=== PATIENT | male | born 1980 | race African-American/Black ===

== ENCOUNTER 2019-08-18 13:41 | Emergency (ER) | payer BC, SELFPAY ==
--- OUTSIDE RECORDS SUMMARY | 2019-08-18 14:24 | XMS REPORT | Clinical Summary ---
:[address] [facility] Address [address] [place] [address] Care Team Providers Name Role Phone Debbie Romero MD Primary Care Provider Allergies No Known Allergies Medications No known medications Active Problems Problem Noted Date Labral tear of shoulder, left, initial encounter 01/12 Overview: Added automatically from request for alex yasemin [id number] Impingement syndrome of left shoulder 01/12/2018 Overview: Added automatically from request for alex hazel [id number] Family History Medical History Relation Name Comments Cancer Maternal Grandmother Rhiannon Oconnor Relation Name Status Comments Maternal Grandmother Rhiannon Oconnor Social History Tobacco Use Types Packs/Day Years Used Date Never Smoker Smokeless Tobacco: Never Used Alcohol Use Drinks/Week oz/Week Comments No Sex Assigned at Date Recorded Not on file Job Start Date Occupation Industry Not on file Not on file Not on file Travel History Travel Start Travel End No recent travel history available. Last Filed Vital Signs Not on file Plan of Treatment Health Maintenance Due Date Last Done Comments INFLUENZA VACCINE 09/29/2019 Implants Implanted Type Area Human Services Worker Device Shelf Model / Identifier Expiration Serial / Date Lot Proximal [employer] Implant Sys Bicepsbutton No 2 Fiber loop - [id number] Surgical Left: [employer] 09/27/2022 AR [id number] / Implanted: Qty: 1 on 01/31/2018 by Van Blank MD at [facility] Implants; Shoulder / Expanders; [id number] Extenders; Surgical Wires Results Not on fileafter 08/17/2018 Advance Directives For more information, please contact: [phone] Type Date Recorded Patient [place] Bottom Maker Explanati on Advance Directives, Living Will and Medical Power of Vat Skimmer
[2019-08-18 14:26] LABS: Absolute Lymphocytes (CBC) 2.3 K/uL (0.7-4.9)
--- NOTE | 2019-08-18 14:27 | RAD REPORT ---
EXAM DESCRIPTION: RAD - Chest Single View - 08/18/2019 2:18 pm CLINICAL HISTORY: CHEST PAIN COMPARISON: Portable June 2016 TECHNIQUE: AP portable chest image was obtained 08/18/2019 2:18 pm . FINDINGS: Lungs are clear. Heart and vasculature are normal. No measurable pleural effusion and no p neumothorax. No acute bony abnormality seen. No acute aortic findings suspected. IMPRESSION: No acute cardiopulmonary process. No significant interval change.
[2019-08-18 14:31] LABS: Basophils % 0.5 % (0-1.3); Hematocrit 44.7 % (39.6-49.0); Lymphocytes % 43.4 % (15.3-44.8); MPV 10.2 fL (7.6-11.3); RBC Red Blood Cell Count 4.79 M/uL (4.33-5.43)
[2019-08-18 14:40] LABS: ALT/SGPT 31 U/L (12-78); AST/SGOT 22 U/L (15-37); Albumin 2.7 g/dL (3.4-5.0); Alkaline Phosphatase 100 U/L (45-117); BUN Blood Urea Nitrogen 9 mg/dL (7-18); Bicarbonate 29 mmol/L (21-32); Bilirubin Direct 0.1 mg/dL (0-0.2); Bilirubin Total 0.6 mg/dL (0.2-1.0); Glucose Level 91 mg/dL (74-106); Magnesium 2.2 mg/dL (1.8-2.4); NT PRO-BNP 20 pg/mL (<125); Potassium 4.1 mmol/L (3.5-5.1); Protein, Total 6.9 g/dL (6.4-8.2); Sodium Level 141 mmol/L (136-145); Troponin (Emerg Dept Use Only) < 0.02 ng/mL (0.0-0.045)
[2019-08-18 15:10] LABS: Blood Morphology Comment NOT SEEN (NOT SEEN); Platelet Estimate ADEQ
[2019-08-18] MEDS ORDERED: NA CHLORIDE 0.9% 500 ML ONE (15:19)
--- NOTE | 2019-08-18 15:44 | ER ---
Nurse's Notes [facility] Name: Peña Oconnor Jr Age: 39 yrs Sex: Male : 1980 Arrival Date: 08/18/2019 Time: 13:51 Bed 13 Private MD: Diagnosis: Chest pain, unspecified Presentation: 08/17 13:54 Chief complaint: Patient states: Chest pain since April, getting worse. States he ll1 started a new job and he thinks he over does it. Coronavirus screen: Proceed with normal triage. Patient denies a cough. Patient denies shortness of breath or difficulty breathing. Patient denies measured and/or subjective temperature greater than 100.4F prior to today's visit. Patient denies travel on a cruise ship or to a country [facility] currently lists as an affected area. Patient denies contact with known and/or suspected case of COVID-19. Ebola Screen: Patient denies travel to an Ebola-affected area in the 21 days before illness onset. Initial Sepsis Screen: Does the patient meet any 2 criteria? No. Patient's initial sepsis screen is negative. Risk Assessment: Do you want to hurt yourself or someone else? Patient reports no desire to harm self or others. Onset of symptoms was April 30, 2019. 13:54 Method Of Arrival: Ambulatory ll1 13:54 Acuity: SILVA 3 ll1 14:00 Initial Sepsis Screen: Does the patient have a suspected source of infection? No. vc Patient's initial sepsis screen is negative. Historical: - Allergies: 13:56 No Known Allergies; ll1 - PMHx: 13:56 Asthma; High Cholesterol; ll1 - PSHx: 13:56 None; ll1 - Immunization history:: Flu vaccine is not up to date. - Social history:: Smoking status: Patient denies any tobacco usage or history of. Patient uses alcohol, but reports only rare drinking. only on a social basis. Patient/guardian denies using street drugs, tobacco products. Screenin:02 Abuse screen: Denies threats or abuse. Nutritional screening: No deficits noted. ll1 Tuberculosis screening: No symptoms or risk factors identified. Fall Risk None identified. Total Trin[place] Fall Scale indicates No Risk (0-24 pts). Assessment: 13:59 General: Appears in no apparent distress. Behavior is calm, cooperative, appropriate ll1 for age. Pain: Complains of pain in chest Pain does not radiate. Quality of pain is described as sharp, Pain began 3 months intermittently. Cardiovascular: Reports chest pain, numbness and fingers and toes at times. Heart tones S1 S2 Capillary refill < 3 seconds Clubbing of nail beds is absent JVD is absent Patient's skin is warm and dry. Pulses are palpable in right radial artery and left radial artery Chest pain is described as vague, quality is sharp, is located in anterior began random, worse at night. Respiratory: No deficits noted. Denies cough. GI: No deficits noted. 14:59 Reassessment: Patient appears in no apparent distress at this time. Patient and/or vc family updated on plan of care and expected duration. Pain level reassessed. Patient is alert, oriented x 3, equal unlabored respirations, skin warm/dry/pink. Pain: Complains of pain in chest Pain currently is 2 out of 10 on a pain scale. Neuro: Level of Consciousness is awake, alert, obeys commands, Oriented to person, place, time, situation, Appropriate for age. 16:00 Reassessment: Patient appears in no apparent distress at this time. Patient and/or ss family updated on plan of care and expected duration. Pain level reassessed. Patient is alert, oriented x 3, equal unlabored respirations, skin warm/dry/pink. Vital Signs: 13:54 BP 103 / 67; Pulse 58; Resp 16; Temp 97.5; Pulse Ox 99% ; Pain 3/10; ll1 14:58 BP 125 / 74; Pulse 57; Resp 14; Pulse Ox 100% on R/A; vc 16:00 BP 131 / 74; Pulse 57; Resp 16; Pulse Ox 100% on R/A; ss ED Course: 13:51 Patient arrived in ED. fj1 13:56 Triage completed. ll1 13:57 Arm band placed on Patient placed in an exam room, on a stretcher. ll1 13:59 Jacque Alfaro RN is Primary Nurse. ll1 14:03 Derick Kelly MD is Attending Physician. kdr 14:10 Inserted saline lock: 20 gauge in right antecubital area, using aseptic technique. vc Blood collected. Patient maintains SpO2 saturation greater than 95% on room air. 14:18 XRAY Chest (1 view) In Process Unspecified. EDMS 14:33 Patient has correct armband on for positive identification. Placed in gown. Bed in low vc position. Side rails up X 1. panel monitor on. Pulse ox on. NIBP on. 16:16 No provider procedures requiring assistance completed. IV discontinued, intact, ss bleeding controlled, No redness/swelling at site. Pressure dressing applied. Administered Medications: 15:10 Drug: NS 0.9% 500 ml Route: IV; Rate: bolus; Site: right antecubital; vc Outcome: 15:43 Discharge ordered by . kdr 16:16 Discharged to home ambulatory. ss 16:16 Condition: good 16:16 Discharge instructions given to patient, Instructed on discharge instructions, follow up and referral plans. medication usage, Demonstrated understanding of instructions, follow-up care, medications, Prescriptions given X 1. 16:16 Patient left the ED. ss Signatures: Dispatcher [employer] [facility] Derick Kelly MD MD kdr Smirch, Shelby, RN RN ss Arlet Anderson RN RN Alfa Trujillo fj1 Jacque Alfaro RN RN ll1
--- NOTE | 2019-08-18 15:44 | EDPHYS ---
Physician Documentation [facility] Name: Peña Oconnor Jr Age: 39 yrs Sex: Male : 1980 Arrival Date: 08/18/2019 Time: 13:51 Bed 13 Private MD: ED Physician Derick Kelly HPI: 08/17 17:10 This 39 yrs old Black Male presents to ER via Ambulatory with complaints of Chest Pain. kdr 17:10 The patient or guardian reports chest pain that is located primarily in the substernal kdr area, anterior chest wall, bilaterally. Onset: suddenly, 3 month(s) ago. The pain does not radiate. Associated signs and symptoms: Pertinent positives: nausea, paresthesia - fingers and toes. The chest pain is described as aching, a pressure, sharp. Duration: The patient or guardian reports multiple episodes, that are intermittent, that wax and wane. Modifying factors: The symptoms are alleviated by rest, the symptoms are aggravated by activity, exertion, movement, walking. Severity of pain: At its worst the pain was mild in the emergency department the pain has resolved. The patient has experienced similar episodes in the past, multiple times, but today's symptoms are worse, lasting longer. Historical: - Allergies: 13:56 No Known Allergies; ll1 - PMHx: 13:56 Asthma; High Cholesterol; ll1 - PSHx: 13:56 None; ll1 - Immunization history:: Flu vaccine is not up to date. - Social history:: Smoking status: Patient denies any tobacco usage or history of. Patient uses alcohol, but reports only rare drinking. only on a social basis. Patient/guardian denies using street drugs, tobacco products. ROS: 17:10 Constitutional: Negative for fever, chills, and weight loss, Eyes: Negative for injury, kdr pain, redness, and discharge, ENT: Negative for injury, pain, and discharge, Neck: Negative for injury, pain, and swelling, Respiratory: Negative for shortness of breath, cough, wheezing, and pleuritic chest pain, Abdomen/GI: Negative for abdominal pain, nausea, vomiting, diarrhea, and constipation, Back: Negative for injury and pain, : Negative for injury, bleeding, discharge, and swelling, MS/Extremity: Negative for injury and deformity, Skin: Negative for injury, rash, and discoloration, Psych: Negative for depression, anxiety, suicide ideation, homicidal ideation, and hallucinations, Allergy/Immunology: Negative for hives, rash, and allergies, Endocrine: Negative for neck swelling, polydipsia, polyuria, polyphagia, and marked weight changes, Hematologic/Lymphatic: Negative for swollen nodes, abnormal bleeding, and unusual bruising. 17:10 Cardiovascular: Positive for chest pain, palpitations, Negative for edema, orthopnea, paroxysmal nocturnal dyspnea. 17:10 Neuro: Positive for tingling, of the , Finger tips and toes. Exam: 17:17 Constitutional: This is a well developed, well nourished patient who is awake, alert, kdr and in no acute distress. Head/Face: Normocephalic, atraumatic. Eyes: Pupils equal round and reactive to light, extra-ocular motions intact. Lids and lashes normal. Conjunctiva and sclera are non-icteric and not injected. Cornea within normal limits. Periorbital areas with no swelling, redness, or edema. Neck: Trachea midline, no thyromegaly or masses palpated, and no cervical lymphadenopathy. Supple, full range of motion without nuchal rigidity, or vertebral point tenderness. No Meningismus. Chest/axilla: Normal chest wall appearance and motion. Nontender with no deformity. No lesions are appreciated. Cardiovascular: Regular rate and rhythm with a normal S1 and S2. No gallops, murmurs, or rubs. Normal PMI, no JVD. No pulse deficits. Respiratory: Lungs have equal breath sounds bilaterally, clear to auscultation and percussion. No rales, rhonchi or wheezes noted. No increased work of breathing, no retractions or nasal flaring. Abdomen/GI: Soft, non-tender, with normal bowel sounds. No distension or tympany. No guarding or rebound. No evidence of tenderness throughout. Back: No spinal tenderness. No costovertebral tenderness. Full range of motion. Skin: Warm, dry with normal turgor. Normal color with no rashes, no lesions, and no evidence of cellulitis. MS/ Extremity: Pulses equal, no cyanosis. Neurovascular intact. Full, normal range of motion. Neuro: Awake and alert, GCS 15, oriented to person, place, time, and situation. Cranial nerves II-XII grossly intact. Motor strength 5/5 in all extremities. Sensory grossly intact. Cerebellar exam normal. Normal gait. Psych: Awake, alert, with orientation to person, place and time. Behavior, mood, and affect are within normal limits. 17:20 ECG was reviewed by the Attending Physician. kdr Vital Signs: 13:54 BP 103 / 67; Pulse 58; Resp 16; Temp 97.5; Pulse Ox 99% ; Pain 3/10; ll1 14:58 BP 125 / 74; Pulse 57; Resp 14; Pulse Ox 100% on R/A; vc 16:00 BP 131 / 74; Pulse 57; Resp 16; Pulse Ox 100% on R/A; ss MDM: 15:43 Patient medically screened. kdr 17:17 Differential diagnosis: acute myocardial infarction, acute pericarditis, anxiety, kdr coronary artery disease chest wall pain. Data reviewed: vital signs, nurses notes. Counseling: I had a detailed discussion with the patient and/or guardian regarding: the historical points, exam findings, and any diagnostic results supporting the discharge/admit diagnosis, lab results, radiology results, the need for outpatient follow up. 08/17 14:04 Order name: Basic Metabolic Panel; Complete Time: 14: [facility] 08/17 14:04 Order name: CBC with Diff; Complete Time: 15:42 [facility] 08/17 14:04 Order name: LFT's; Complete Time: 14: [facility] 08/17 14:04 Order name: Magnesium; Complete Time: 14: [facility] 08/17 14:04 Order name: NT PRO-BNP; Complete Time: 14:59 [facility] 08/17 14:04 Order name: Troponin (emerg Dept Use Only); Complete Time: 14:59 [facility] 08/17 14:04 Order name: XRAY Chest (1 view); Complete Time: 14:59 [facility] 08/17 14:04 Order name: EKG; Complete Time: 14:05 [facility] 08/17 14:04 Order name: Cardiac monitoring; Complete Time: 14: [facility] 08/17 14:04 Order name: EKG - Nurse/Tech; Complete Time: 14: [facility] 08/17 14:04 Order name: IV Saline Lock; Complete Time: 14: [facility] 08/17 14:04 Order name: Labs collected and sent; Complete Time: 14: [facility] 08/17 14:33 Order name: Manual Differential; Complete Time: 15:42 EDMS 08/17 14:04 Order name: O2 Per Protocol; Complete Time: 14:32 kdr 08/17 14:04 Order name: O2 Sat Monitoring; Complete Time: 14:32 [facility] EC:20 Rate is 50 beats/min. Rhythm is regular, Sinus bradycardia with No ectopy. QRS [place] is kdr Normal. CT interval is normal. QRS interval is normal. QT interval is normal. No Q waves. Clinical impression: NSR w/ Non-specific ST/T Changes and Sinus bradycardia. Administered Medications: 15:10 Drug: NS 0.9% 500 ml Route: IV; Rate: bolus; Site: right antecubital; Disposition: 08/18/19 15:43 Discharged to Home. Impression: Chest pain, unspecified. - Condition is Stable. - Discharge Instructions: Nonspecific Chest Pain, [id number]. - Prescriptions for Pepcid 20 mg Oral Tablet - take 1 tablet by ORAL route every 12 hours for 10 days; 20 tablet. - Medication Reconciliation Form, Thank You Letter, Work release form form. - Follow up: Private Physician; When: 2 - 3 days; Reason: If symptoms return, Further diagnostic work-up, Recheck today's complaints, Continuance of care, Re-evaluation by your physician. - Problem is new. - Symptoms have improved. Signatures: Dispatcher [employer] [facility] Derick Kelly MD MD [facility] Luh Stephens RN RN ss Arlet Anderson RN RN Jacque Alfaro RN RN ll1 Corrections: (The following items were deleted from the chart) 16:16 15:43 08/18/2019 15:43 Discharged to Home. Impression: Chest pain, unspecified. ss Condition is Stable. Forms are Medication Reconciliation Form, Thank You Letter, Antibiotic Education, Prescription Opioid Use. Follow up: Private Physician; When: 2 - 3 days; Reason: If symptoms return, Further diagnostic work-up, Recheck today's complaints, Continuance of care, Re-evaluation by your physician. Problem is new. Symptoms have improved. kdr
[2019-08-18 16:24] VITALS: TEMP 97.5
[2019-08-18 16:26] VITALS: O2SAT 100
[2019-08-18 16:27] VITALS: BP 131/74
--- NOTE | 2019-08-19 06:22 | EKG ---
Test Date: 2019-08-18 Test Time: 14:21:56 Archery Equipment Repairer: KESHA MEASUREMENT RESULTS: Intervals: Rate: 50 SD: 146 QRSD: 80 QT: 432 QTc: 393 [place]: P: 62 SD: 146 QRS: 63 T: 49 INTERPRETIVE STATEMENTS: Sinus bradycardia Possible Left atrial enlargement Borderline ECG Compared to ECG 07/12/2016 10:27:30 Sinus arrhythmia no longer present Electronically Signed On 08-19-19 06:20:23 CDT by Remy Veloz
== END 2019-08-18 16:16 | disposition home or self-care (01) ==
LOC: ER 13:41
DX: R07.9 Chest pain, unspecified (principal); R20.2 Paresthesia of skin
CPT/HCPCS: 93005; 85025; 80048; 36415; 83735; 80076; 84484; 83880; 71045; 99285; J7040